=== PATIENT | female | born 1980 | race Caucasian/White ===

== ENCOUNTER 2024-10-30 11:52 | Outpatient (REF) | payer OTHER, SELFPAY ==
--- NOTE | ~2024-10-30 | XR_ITS ---
EXAMINATION: XR SKULL CLINICAL INFORMATION: PT states she had an eardrum repair on left side; COMPARISON: None available. TECHNIQUE: 2 views of the skull were obtained. FINDINGS: No radiopaque foreign body is evident aside from dental hardware. No other abnormalities are seen. XR/XR skull <4V IMPRESSION: Unremarkable examination. There is no absolute contraindication to MRI apparent on the x-ray. Electronically signed by: Tarik Eastman MD 10/30/2024 12:22 PM EDT
--- NOTE | ~2024-10-30 | MR_ITS ---
EXAMINATION: MR BREAST WITHOUT AND WITH CONTRAST, BILATERAL CLINICAL INFORMATION: Palpable left breast lump lower outer left breast to the nipple. Patient describes discomfort to the touch of this area. No diagnostic mammogram or ultrasound for this symptom is in our PACS imaging database. Patient should first have a diagnostic mammogram and ultrasound for any palpable area of concern. COMPARISON: Outside mammograms dated August 12, 2023 and April 12, 2021. TECHNIQUE: MR imaging of the breast was performed using T1, T2 and fat saturated techniques. Dynamic multiphase imaging was also performed after the administration of intravenous gadolinium contrast agent. Computer generated 3D reconstruction and enhancement kinetic analysis was ulitized by the radiologist in the interpretation of this examination. FINDINGS: Breast composition: Heterogeneous fibroglandular breast tissue Background parenchymal enhancement: Moderate Bilateral T2 hyperintense nonenhancing cysts. LEFT BREAST: No suspicious enhancing masses or areas of non mass enhancement. No axillary or internal mammary adenopathy. RIGHT BREAST: No suspicious enhancing masses or areas of non mass enhancement. No axillary or internal mammary adenopathy. Limited views of the chest and abdomen are unremarkable. MR/MR breast BI wo/w con IMPRESSION: Bilateral T2 hyperintense nonenhancing cysts. Benign. Left: No MRI finding to account for the patient's palpable left breast lump. Patient does not have a diagnostic mammogram or ultrasound in our system for this clinical area of concern. Patient should first get a diagnostic mammogram and ultrasound before MRI imaging for any palpable or painful lump. Right: Benign. ASSESSMENT: LEFT BREAST: BI-RADS 0 additional imaging recommended at this time. Patient should has a diagnostic left breast mammogram and ultrasound to evaluate palpable lump and pain. RIGHT BREAST: BI-RADS 2-Benign RECOMMENDATIONS: Left breast diagnostic mammogram and ultrasound at this time to evalaute left breast pain and palpable lump. Electronically signed by: Katt Mcmillan DO 11/02/2024 03:50 PM EDT
== END 2024-10-30 11:53 | disposition home or self-care (01) ==
LOC: HO.MRI 11:52
PROVIDERS: Visit Provider Emergency Medicine
DX: N63.25 Unspecified lump in the left breast, overlapping quadrants (principal); Z01.818 Encounter for other preprocedural examination
CPT/HCPCS: 70250; 77049; A9585

== ENCOUNTER → 2024-10-30 11:55 | Outpatient (BNV) | payer OTHER, SELFPAY | PROVIDERS: Visit Provider Radiology Diagnostic Radiology | DX: N63.23 Unspecified lump in the left breast, lower outer quadrant (principal) | CPT/HCPCS: 77049 ==

== ENCOUNTER 2024-11-23 14:46 | Outpatient (REF) | payer OTHER, SELFPAY ==
--- NOTE | ~2024-11-23 | MM_ITS ---
EXAMINATION(S): 1. MM DIAGNOSTIC DIGITAL BREAST TOMOSYNTHESIS, BILATERAL 2. Targeted ultrasound of the left breast CLINICAL INFORMATION: -According patient, left breast lump in the lower breast. -Patient had the breast MRI on October 30, 2024 to evaluated the left breast lump. No abnormal MR finding was seen to accounts for patient's palpable concern, but a diagnostic mammogram and ultrasound was recommended for better evaluation for the palpable lump. COMPARISON: Breast MRI on October 30, 2024. Mammograms on August 12, 2023 and April 12, 2021 TECHNIQUE: Digital breast tomosynthesis is performed in both the mediolateral oblique and craniocaudal views along with computer-aided detection (CAD). Synthesized 2D images are generated from the tomosynthesis. Spot compression tomosynthesis were obtained. FINDINGS: BREAST COMPOSITION: The breasts are extremely dense, which lowers the sensitivity of mammography (ACR BI-RADS breast composition Category d). RIGHT BREAST: No significant masses, suspicious calcifications or other abnormalities are seen. LEFT BREAST: No significant masses, suspicious calcifications or other abnormalities are seen. Adjacent to the skin BB marker placed in the area of concern at approximately 6 o'clock position posterior depth, there is a lobulated mass measuring up to 3.3 cm in size at about 4 cm from the nipple (CC 15/46, MLO 16/40). Note that the breast compression was partially suboptimal due to presence of multiple cysts and patient's sensitivity to compression. Targeted ultrasound of the left breast performed at the location of the palpable concern as indicated by the patient shows multiple simple cysts, some of them partially septated. The largest cyst measures 2.6 x 1.2 x 2.1 cm and is located 6 o'clock position 2 cm from the nipple. No abnormal vascularity demonstrated with color Doppler evaluation. The cluster of multiple cysts correlates with the apparent single lobulated mass on the mammogram. MM/MM tomosynthesis diagnostic BI IMPRESSION: RIGHT BREAST: Negative, no mammographic evidence of malignancy. Normal interval follow-up is recommended in 12 months. LEFT BREAST: Multiple cysts. Benign, no evidence of malignancy. Clinical follow-up is recommended for the palpable concern. Otherwise, normal interval follow-up is recommended in 12 months. ASSESSMENT: BI-RADS 2 - Benign Findings RECOMMENDATION: 1. Patient should be managed based on the clinical impression. 2. Otherwise, routine annual screening mammography. Results were provided to the patient at time of visit by the technologist. This patient's information was entered into a reminder system with a target due date for their next mammogram. Electronically signed by: Boston Leger MD 11/23/2024 06:16 PM EDT
--- OUTSIDE RECORDS SUMMARY | 2024-11-23 20:13 | XMS_ITS | Encounter Summary ---
Author Organization [facility] Address [address] [facility] [address] [place] [address] Phone Care Team Providers Care Climate Change Analyst Name Role Phone Rae Robertson MD Unavailable [phone] WattersYuri araya-Kimberlyn NURSE STAFF INDUSTRIAL Primary Care Provider + Encounter Details Date Type Department Care Team (Late st Contact Info) Description 02/26/2023 Transcribe Orders Virtual Department [address] [place] [address] Araceli Larkin, DO [address] [place] [address] [email or web address] Breast screening (Primary Dx) Social History Tobacco Use Types Packs/Day Years Used Date Smoking Tobacco: Every Day Cigarettes 0.1 15 Started: 02/11/2001; Last attempted to quit: 02/12/2016 Smokeless Tobacco: Never Alcohol Use Standard Drinks/Week Comments Yes 1 (1 standard drink = 0.6 oz pur e alcohol) Education Answer Date Recorded Are you interested in more education? Not on reny e 07/06/2022 Are you concerned about learning? Not on file 07/06/2022 No 07/06/2022 No 07/06/2022 Digital Access Answer Date Recorded No 08/04/2022 No 08/04/2022 Reliable internet access at home? Not on file 08/04/2022 Device with a working camera? Not on file Comments No Sex and Gender Information Value Date Recorded Sex Assigned at Female 02/19/2019 5:35 PM EST Legal Sex Female 11:38 AM EDT Gender Identity Female 02/19/2019 5:35 PM EST Sexual Orientation Not on file documented as of this encounter Plan of Treatment Not on file documented as of this encounter Results * BI MAMMOGRAM SCREENING WITH TOMOSYNTHESIS WITH CAD (BILATERAL) (08/12/2023 2:13 PM EDT) Anatomical Region Laterality Modality Breast Left, Breast Right, Breast Bilateral Bila teral Mammography 08/14/2023 7:00 PM EDT Impressions 08/14/2023 7:03 PM EDT No mammographic evidence of malignancy in either breast. Annual screening mammography is recommended. BI-RADS 1 NEGATIVE The patient will be notified of the results and recommendations. Narrative 08/14/2023 7:03 PM EDT BI MAMMOGRAM SCREENING WITH TOMOSYNTHESIS WITH CAD (BILATERAL) Additional patient information: Screening. COMPARISON: Comparison is made with relevant prior imaging. Breast composition: The breast tissue is heterogeneously dense which may obscure small masses. FINDINGS: No abnormal masses, suspicious calcifications, or other significant findings are identified mammographically in either breast. Procedure Note Jess Davalos MD - 08/14/2023 BI MAMMOGRAM SCREENING WITH TOMOSYNTHESIS WITH CAD (BILATERAL) Additional patient information: Screening. COMPARISON: Comparison is made with relevant prior imaging. Breast composition: The breast tissue is heterogeneously dense which mayobscure small masses. FINDINGS: No abnormal masses, suspicious calcifications, or other significantfindings are identified mammographically in either breast. IMPRESSION: No mammographic evidence of malignancy in either breast. Annual screening mammography is recommended. BI-RADS 1 NEGATIVE The patient will be notified of the results and recommendations. us Araceli Larkin DO IMG MG EXAMS Final Re sult documented in this encounter Visit Diagnoses Diagnosis Breast screening- Primary Breast screening, unspecified Breast screening Breast screening, unspecified documented in this encounter Care Teams Climate Change Analyst Relationship Specialty Start Date End Date Dorothy Watters CNP [address] [place] [address] PCP - General Gynecology 03/29/21 Rae Robertson MD [address] [place] [address] [email or web address] Medical Oncology 06/18/17 documented as of this encounter Additional Source Comments The information contained in this document represents components of the legal health record. It is not the complete legal health record.[facility]
--- OUTSIDE RECORDS SUMMARY | 2024-11-23 20:13 | XMS_ITS | Encounter Summary ---
Author Organization [facility] Address [address] [facility] [address] [place] [address] Phone Care Team Providers Care Photographic Equipment Inspector Name Role Phone Rae Robertson MD Unavailable [phone] Dorothy Watters ASSEMBLER INSULATOR Primary Care Provider + Encounter Details Date Type Department Care Team ([facility] st Contact Info) Description 10/22/2024 Ancillary Orders [facility] [address] [place] [address] Nicolette Soriano, ASSEMBLER INSULATOR [address] [facility] [address] [place] [address] [email or web address] Mass of left breast, unspecified quadrant (Primary Dx) Social History Tobacco Use Types [...] as of this encounter Plan of Treatment Scheduled Orders Name Type Priority Associated Diagnoses Orde r Schedule Mammogram Diagnostic (Bilateral) Imaging Routine Mass Of Left Breast, Unspecified Quadrant 1 Occurrences starting 10/22/2024 until 10/22/2026 US Breast (Left) Imaging Routine Mass Of Left Breast, Unspecified Quadrant 1 Occurrences starting 10/22/2024 until 10/22/2026 documented as of this encounter Visit Diagnoses Diagnosis Mass of left breast, unspecified quadrant- Primary documented in this encounter Care Teams Photographic Equipment Inspector Relationship Specialty Start Date End Date Dorothy Watters CNP [address] [place] [address] PCP - General Gynecology 03/29/21 Rae Robertson MD [address] [place] [address] Medical Oncology 06/18/17 documented as of this encounter Additional Source Comments The information contained in this document represents components of the legal health record. It is not the complete legal health record.[facility]
--- OUTSIDE RECORDS SUMMARY | 2024-11-23 20:13 | XMS_ITS | Encounter Summary ---
Author Organization [facility] Address [address] [facility] [address] [place] [address] Phone Care Team Providers Care Photostat Operator Helper Name Role Phone Pcp, Not Required Primary Care Provider Rae Saravia MD Unavailable [phone] Dorothy Watters CNP Primary Care Provider + Encounter Details Date Type Department Care Team (Late st Contact Info) Description 01/11/2017 Procedure Pass [facility] [place] [facility] [address] [facility] 2nd [place] [address] Social History Tobacco Use Types Packs/Day Years Used Date Smoking Tobacco: Never Assessed Comments Unknown Sex and Gender Information Value Date Recorded Sex Assigned at Female 02/19/2019 5:35 PM EST Legal Sex Female 11:38 AM EDT Gender Identity Female 02/19/2019 5:35 PM EST Sexual Orientation Not on file documented as of this encounter Plan of Treatment Not on file documented as of this encounter Visit Diagnoses Not on filedocumented in this encounter Additional Health Concerns Infection Onset Date Last Indicated Resolved Time CoV-Risk 02/11/2021 02/11/2021 02/21/2021 1:22 AM EST documented as of this encounter Care Teams Photostat Operator Helper Relationship Specialty Start Date End Date Pcp, Not Required [address] [place] [address] PCP - General 12/27/16 03/28/21 Dorothy Watters CNP [address] [place] [address] [email or web address] PCP - General Gynecology 03/29/21 Rae Robertson MD [address] [place] [address] [email or web address] Medical Oncology 06/18/17 documented as of this encounter Additional Source Comments The information contained in this document represents components of the legal health record. It is not the complete legal health record.[facility]
--- OUTSIDE RECORDS SUMMARY | 2024-11-23 20:13 | XMS_ITS | Clinical Summary ---
Author Organization [facility] Address [address] [place] [employer] [facility] [address] [place] [address] Phone Care Team Providers Care Instructor Pilot Name Role Phone Rae Robertson MD Unavailable [phone] Dorothy Watters OVEN LOADER Primary Care Provider + Allergies Active Allergy Reactions Criticality Noted Date Comments Cat Hair Standardized Allergenic Extract 02/11/2017 Gadoterate Meglumine Itching,Other (See Comments) Low 12/25/2016 Patient also reported brief episode of chest heaviness immediately following the injection. 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 Encounters Date Type Department Care Team Description 10/22/2024 Ancillary Orders [facility] [address] [place] [address] Nicolette Soriano CNP Mass of left breast, unspecified quadrant (Primary Dx) from Last 3 Months Family History Medical History Relation Comments Hypertension Father Prostate cancer Father Breast cancer Maternal Aunt 1 Bladder Cancer Maternal Aunt 2 Breast cancer Maternal Cousin 1 Breast cancer Maternal Cousin 2 Bladder Cancer Maternal Grandmother Heart disease Paternal Grandfather Relation Status Comments Father Alive Maternal Aunt 1 Maternal Aunt 2 Maternal Cousin 1 Maternal Cousin 2 Maternal Grandmother Mother Alive Paternal Grandfather Social History Tobacco Use Types Packs/Day Years Used Date Smoking Tobacco: Every Day Cigarettes 0.1 15 Started: 02/11/2001; Last attempted to quit: 02/12/2016 Smokeless Tobacco: Never Tobacco Cessation:Ready to Q uit: Yes; Counseling Given: Yes Alcohol Use Standard Drinks/Week Comments Yes 1 [...] PM EST Sexual Orientation Not on file Last Filed Vital Signs Vital Sign Reading Time Taken Comments Blood Pressure 110/60 02/17/2021 10:48 AM EST Pulse 100 02/17/2021 10:48 AM EST Temperature 36.7 C (98 F) 02/17/2021 10:48 AM EST Respiratory Rate 16 02/11/2021 5:45 PM EST Oxygen Saturation 100% 02/17/2021 10:48 AM EST Inhaled Oxygen Concentration - - Weight 54.4 kg (120 lb) 02/11/2021 10:23 AM EST Height 177.8 cm (5' 10 ) 02/11/2021 10:23 AM EST Body Mass Index 17.22 02/11/2021 10:23 AM EST Plan of Treatment Health Maintenance Due Date Last Done Comments LIPID PANEL 1978 DEPRESSION SCREENING 1990 SMOKING Hx and SMOKELESS TOBACCO SCREENING 1991 HEPATITIS C SCREENING 1996 HIV ONE-TIME SCREENING (18-6 5 YEARS) 1996 PAP SMEAR 1999 PNEUMOCOCCAL VACCINES (0-49 years) (2 of 2 - PCV) 05/19/2002 05/19/2001 COLOGUARD 2023 COLONOSCOPY 2023 COLORECTAL CANCER SCREENING 2023 FIT TEST 2023 FOBT 2023 SIGMOIDOSCOPY 2023 VIRTUAL COLONOSCOPY 2023 INFLUENZA VACCINE (#1) 2024 01/04/2020 COVID-19 VACCINE (2024-04 6 season) 2024 06/28/2020 MAMMOGRAM 08/11/2025 08/12/2023, 04/12/2021 Adult Td,Tdap Booster 10/16/2028 10/16/2018 , 09/10/2011, 01/14/2003 HEPATITIS A VACCINES Aged Out No long er eligible based on patient's age to complete this topic HIB VACCINES Aged Out No longer eligi ble based on patient's age to complete this topic MENINGOCOCCAL VACCINES (ACWY) Aged Out No longer eligible based on patient's age to complete this topic MENINGOCOCCAL VACCINES (B) Aged Out N o longer eligible based on patient's age to complete this topic Medical Devices Implanted Type Area Shuttle Fitting Supervisor Device Identifier Shelf Expiration Date Model / Serial / Lot Mirena Iud Procedures Procedure Name Priority Date/Time Associated Diagnosis Comments BI MAMMOGRAM SCREENING WITH TOMOSYNTHESIS WITH CAD (BILATERAL) Routine 08/12/2023 2:13 PM EDT Breast screening from Last 3 Months or Most Recently Relevant to Health Maintenance Results * BI MAMMOGRAM SCREENING WITH TOMOSYNTHESIS [...] be notified of the results and recommendations. Araceli Larkin DO IMG MG EXAMS Final Re sult from Last 3 Months or Most Recently Relevant to Health Maintenance Insurance DataEmail Group PLUS PPO DataEmail Group PLUS PPO WELLPOINT GIC PLUS PPO WELLPOINT GIC PLUS PPO WELLPOINT GIC PLUS PPO CiRBA GI PLUS PPO CiRBA GIC PLUS PPO DataEmail Group PLUS PPO DataEmail Group PLUS PPO Advance Directives For more information, please contact: [phone] (9AM - 5PM [facility], Saturday-Saturday) Documents on File Type Date Recorded Patient Beater Out Expl anation Healthcare Proxy 02/21/2017 12:03 PM Care Teams Instructor Pilot Relationship Specialty Start Date End Date Dorothy Watters CNP [address] [place] [phone] PCP - General Gynecology 03/29/21 Rae Robertson MD [address] [place] [address] Medical Oncology 06/18/17 Additional Source Comments The information contained in this document represents components of the legal health record. It is not the complete legal health record.[facility]
--- OUTSIDE RECORDS SUMMARY | 2024-11-23 20:13 | XMS_ITS | Encounter Summary ---
Author Organization [facility] Address [address] [employer] [facility] [address] [place] [address] Phone Care Team Providers Care Utility Locator Name Role Phone Pcp, Not Required Primary Care Provider Rae Saravia MD Unavailable [phone] Dorothy Watters CNP Primary Care Provider + Encounter Details Date Type Department Care Team (Late st Contact Info) Description 02/19/2017 Procedure Pass [facility] [address] [place] [phone] Social History Tobacco Use Types Packs/Day Years Used Date Smoking Tobacco: Former Cigarettes 0.3 15 1 04/14/2000 - 02/12/2016 Smokeless Tobacco: Never Alcohol Use Standard Drinks/Week Comments Yes 2 (1 standard drink = 0.6 oz pur e alcohol) Comments Unknown Sex and Gender Information Value [...] documented as of this encounter Care Teams Utility Locator Relationship Specialty Start Date End Date Pcp, Not Required [address] [place] [address] PCP - General 12/27/16 03/28/21 Dorothy Watters CNP [address] [place] [address] [email or web address] PCP - General Gynecology 03/29/21 Rae Robertson MD [address] [place] [address] [email or web address] Medical Oncology 06/18/17 documented as of this encounter Additional Source Comments The information contained in this document represents components of the legal health record. It is not the complete legal health record.[facility]
--- OUTSIDE RECORDS SUMMARY | 2024-11-23 20:13 | XMS_ITS | Encounter Summary ---
Author Organization [facility] Address [address] [employer] [facility] [address] [place] [address] Phone Care Team Providers Care Hiv Nurse Name Role Phone Rae Robertson MD Unavailable [phone] Dorothy Watters CNP Primary Care Provider + Encounter Details Date Type Department Care Team (Late st Contact Info) Description 02/26/2023 Procedure Pass [facility] - [address] [place] [address] Social History Tobacco Use Types Packs/Day Years [...] Diagnoses Not on filedocumented in this encounter Care Teams Hiv Nurse Relationship Specialty Start Date End Date Dorothy Watters CNP [address] [place] [phone] PCP - General Gynecology 03/29/21 Rae Robertson MD [address] [place] [phone] Medical Oncology 06/18/17 documented as of this encounter Additional Source Comments The information contained in this document represents components of the legal health record. It is not the complete legal health record.[facility]
--- OUTSIDE RECORDS SUMMARY | 2024-11-23 20:14 | XMS_ITS | Encounter Summary ---
Author Organization [facility] Address [address] [employer] [facility] [address] [place] [address] Phone Care Team Providers Care Obstetrics Tech Name Role Phone Pcp, Not Required Primary Care Provider Rae Saravia MD Unavailable [phone] Dorothy Watters CNP Primary Care Provider + Encounter Details Date Type Department Care Team (Late st Contact Info) Description 02/11/2021 Procedure Pass [place] Admitting Dept - Virtual Department [address] [place] [address] Social History Tobacco Use Types Packs/Day Years [...] on file documented as of this encounter Functional Status * Calculated C-SSRS Risk Score (Lifetime/Recent) Answer Date of Assessment Author No Risk Indicated 02/11/2021 10:23 AM EST Ashia Mckeon, GEETA * [place] Suicide Severity Rating Scale (Screener/Recent Self-Report) Question Answer Date of Assessment Author 1. Wish to be (Past 1 Month) No 021 10:23 AM Ashia Sanford, GEETA 2. Non-Specific Active Suici michael Thoughts (Past 1 Month) No 02/11/2021 10:23 AM Ashia Sanford , GEETA 6. Suicidal Behavior (Lifetime) No 10:23 AM Ashia Sanford, GEETA documented as of this encounter Plan of Treatment Not on file documented as of this encounter Visit Diagnoses Not on filedocumented in this encounter Additional Health Concerns Infection Onset Date Last Indicated Resolved Time CoV-Risk 02/11/2021 02/11/2021 02/21/2021 1:22 AM EST documented as of this encounter Care Teams Obstetrics Tech Relationship Specialty Start Date End Date Pcp, Not Required [address] [place] [address] PCP - General 12/27/16 03/28/21 Dorothy Watters CNP [address] [place] [address] PCP - General Gynecology 03/29/21 Rae Robertson MD [address] [place] [address] Medical Oncology 06/18/17 documented as of this encounter Additional Source Comments The information contained in this document represents components of the legal health record. It is not the complete legal health record.[facility]
--- OUTSIDE RECORDS SUMMARY | 2024-11-23 20:14 | XMS_ITS | Encounter Summary ---
Author Organization [facility] Address [address] [facility] [address] [place] [address] Phone Care Team Providers Care Ediscovery Project Manager Name Role Phone Pcp, Not Required Primary Care Provider Rae Saravia MD Unavailable [phone] Dorothy Watters CNP Primary Care Provider + Encounter Details Date Type Department Care Team (Late st Contact Info) Description 03/22/2021 Transcribe Orders Virtual Department [address] [place] [address] Dorothy Watters CNP [address] [place] [address] [email or web address] Encounter for initial prescription of implantable subdermal contraceptive (Primary Dx); Hematuria, unspecified type Social History Tobacco Use Types Packs/Day Years [...] documented as of this encounter Results * US Kidneys and Bladder (03/29/2021 9:44 AM EST) Anatomical Region Laterality Modality Abdomen, Kidney Ultrasound 03/29/2021 9:57 AM EST Impressions 03/29/2021 9:59 AM EST No findings to account for hematuria. Narrative 03/29/2021 9:59 AM EST COMPARISON: CT abdomen pelvis 02/11/2021. RENAL AND BLADDER ULTRASOUND FINDINGS: Bladder: Prevoid volume is 301 cc. Postvoid volume is 10 cc or 3%. Ureteral jets are visualized. No bladder wall thickening, masses or calculi. Kidneys: Right kidney measures 11 x 3 cm. No hydronephrosis, masses or calculi. Cortical echogenicity and thickness are normal. No perinephric fluid collections. Left kidney measures 11 x 4 cm. No hydronephrosis, masses or calculi. Cortical echogenicity and thickness are normal. No perinephric fluid collections. Procedure Note Timbo Duran MD - 03/29/2021 COMPARISON: CT abdomen pelvis 02/11/2021. RENAL AND BLADDER ULTRASOUND FINDINGS: Bladder: Prevoid volume is 301 cc. Postvoid volume is 10 cc or 3%.Ureteral jets are visualized. No bladder wall thickening, masses orcalculi. Kidneys: Right kidney measures 11 x 3 cm. No hydronephrosis, masses or calculi.Cortical echogenicity and thickness are normal. No perinephric fluidcollections. Left kidney measures 11 x 4 cm. No hydronephrosis, masses or calculi.Cortical echogenicity and thickness are normal. No perinephric fluidcollections. IMPRESSION: No findings to account for hematuria. us Laisa-Sheili Watters LAND RECLAMATION SPECIALIST IMG US RENAL Final Re sult documented in this encounter Visit Diagnoses Diagnosis Encounter for initial prescription of implantable subdermal contraceptive- Primary Hematuria, unspecified type Encounter for initial prescription of implantable subdermal contraceptive Hematuria, unspecified type documented in this encounter Care Teams Ediscovery Project Manager Relationship Specialty Start Date End Date Pcp, Not Required [address] [place] [address] PCP - General 12/27/16 03/28/21 Dorothy Watters CNP [address] [place] [address] [email or web address] PCP - General Gynecology 03/29/21 Rae Robertson MD [address] [place] [address] [email or web address] Medical Oncology 06/18/17 documented as of this encounter Additional Source Comments The information contained in this document represents components of the legal health record. It is not the complete legal health record.[facility]
--- OUTSIDE RECORDS SUMMARY | 2024-11-23 20:14 | XMS_ITS | Encounter Summary ---
Author Organization [facility] Address [address] [facility] [address] [place] [address] Phone Care Team Providers Care Watch Parts Inspector Name Role Phone Pcp, Not Required Primary Care Provider Rae Saravia MD Unavailable [phone] Dorothy Watters CNP Primary Care Provider + Encounter Details Date Type Department Care Team (Late st Contact Info) Description 03/16/2021 Procedure Pass [facility] - [address] [place] [address] Social History Tobacco Use Types Packs/Day Years Used Date Smoking Tobacco: Every Day Cigarettes 0.1 15 Started: 02/11/2001; Last attempted to quit: 02/12/2016 Smokeless Tobacco: Never Alcohol Use Standard Drinks/Week Comments Yes 1 (1 standard drink = 0.6 oz pur e alcohol) Comments No Sex and Gender Information Value Date Recorded Sex Assigned at Female 02/19/2019 5:35 PM EST Legal Sex Female 11:38 AM EDT Gender Identity Female 02/19/2019 5:35 PM EST Sexual Orientation Not on file documented as of this encounter Plan of Treatment Not on file documented as of this encounter Visit Diagnoses Not on filedocumented in this encounter Care Teams Watch Parts Inspector Relationship Specialty Start Date End Date Pcp, Not Required [address] [place] [address] PCP - General 12/27/16 03/28/21 Dorothy Watters CNP [address] [place] [address] [email or web address] PCP - General Gynecology 03/29/21 Rae Robertson MD [address] [place] [address] [email or web address] Medical Oncology 06/18/17 documented as of this encounter Additional Source Comments The information contained in this document represents components of the legal health record. It is not the complete legal health record.[facility]
--- OUTSIDE RECORDS SUMMARY | 2024-11-23 20:14 | XMS_ITS | Encounter Summary ---
Author Organization [facility] Address [address] [address] Phone Care Team Providers Care Public Improvement Inspector Name Role Phone Pcp, Not Required Primary Care Provider Rae Saravia MD Unavailable [phone] Dorothy Watters CNP Primary Care Provider + Reason for Referral * MRI/CAT Scan - Closed Specialty Diagnoses / Procedures Referred By Contac t Referred To Contact Radiology Diagnoses Soft tissue mass Procedures CT PET Extremity Lobo Valiente MD Phone: tel: fax: mailto:[email or web address] Referral ID Status Reason Start Date Expiration Date Visits Re quested Visits Authorized [id number] Closed 01/11/2017 01/11/2017 1 1 * MRI/CAT Scan - Closed Specialty Diagnoses / Procedures Referred By Contac t Referred To Contact Radiology Diagnoses Soft tissue mass Procedures CT PET Abdomen/Pelvis Lobo Valiente MD Phone: tel: fax: mailto:[email or web address] Referral ID Status Reason Start Date Expiration Date Visits Re quested Visits Authorized [id number] Closed 01/11/2017 02/25/2017 1 1 * MRI/CAT Scan - Closed Specialty Diagnoses / Procedures Referred By Jerry zhou Referred To Contact Radiology Diagnoses Soft tissue mass Procedures CT PET Chest Lobo Valiente MD Phone: tel: fax: mailto:[email or web address] Referral ID Status Reason Start Date Expiration Date Visits Re quested Visits Authorized [id number] Closed 01/11/2017 02/25/2017 1 1 Encounter Details Date Type Department Care Team (Late st Contact Info) Description 01/11/2017 Ancillary Orders [facility] Orthopaedic Spine [address] [facility], 3rd Floor, [address] [place] [address] Lobo Valiente MD [address] [facility] [address] [place] [address] [email or web address] Soft tissue mass Social History Tobacco Use Types Packs/Day Years [...] documented as of this encounter Results * CT PET EXTREMITY CONTRAST (01/11/2017 2:01 PM EDT) Anatomical Region Laterality Modality Hip Left, Hip Right, Hip Eber ateral, Thigh Left, Thigh Right, Knee Left, Knee Right, Knee Bilateral, Leg Left, Leg Right, Leg Bilateral, Ankle Left, Ankle Right, Ankle Bilateral, Foot Left, Foot Right, Foot Bilateral, Shoulder Left, Shoulder Right, Shoulder Bilateral, Arm Left, Arm Right, Arm Bilateral, Elbow Left, Elbow Right, Elbow Bilateral, Forearm Left, Forearm Right, Forearm Bilateral, Wrist Left, Wrist Right, Wrist Bilateral, Hand Left, Hand Right, Hand Bilateral Positron Emission Ho ography (PET) 01/11/2017 3:18 PM EDT Impressions 01/11/2017 7:09 PM EDT FDG avid, enhancing mass within the left upper medial thigh may be reactive to an infectious / inflammatory process, however neoplasm is not entirely excluded. Enchondroma of the left proximal femur. Narrative 01/11/2017 7:09 PM EDT Diagnostic PET/CT scan: COMPARISON: MRI of the left lower extremity from 12/25/2016 TECHNIQUE: This study was performed as part of a combined PET/CT scan. Separate subspecialty reports will be issued for the individual organ systems. Requesting physicians are referred to the reports from all components of the study. FINDINGS: Pelvis: Please refer to the CT pelvis report from the same day for additional details. Left lower extremity: No additional masses are noted. Within the left, upper medial thigh there is a 4.1 x 1.5 x 2.1 cm enhancing, FDG avid mass, just anteromedial to the left sartorius muscle. Stippled calcified lesion within the left proximal femoral diaphysis with low level FDG uptake, compatible with an enchondroma. Right lower extremity: No suspicious masses, lymphadenopathy or osseous abnormalities. Procedure Note Ayden Ortega MD - 01/11/2017 Diagnostic PET/CT scan: COMPARISON: MRI of the left lower extremity from 12/25/2016 TECHNIQUE: This study was performed as part of a combined PET/CT scan. Separate subspecialty reports will be issued for the individual organ systems. Requesting physicians are referred to the reports from all components ofthe study. FINDINGS: Pelvis: Please refer to the CT pelvis report from the same day foradditional details. Left lower extremity: No additional masses are noted. Within the left,upper medial thigh there is a 4.1 x 1.5 x 2.1 cm enhancing, FDG avid mass,just anteromedial to the left sartorius muscle. Stippled calcified lesionwithin the left proximal femoral diaphysis with low level FDG uptake, compatible withan enchondroma. Right lower extremity: No suspicious masses, lymphadenopathy or osseous abnormalities. IMPRESSION: FDG avid, enhancing mass within the left upper medial thigh may bereactive to an infectious / inflammatory process, however neoplasm is not entirelyexcluded. Enchondroma of the left proximal femur. Lobo Valiente MD IMG CT PETCT Final Result * CT PET ABDOMEN/PELVIS WITH CONTRAST (01/11/2017 2:01 PM EDT) Anatomical Region Laterality Modality Abdomen, Pelvis Positron Emissio n Tomography (PET) 01/11/2017 2:59 PM EDT Impressions 01/12/2017 8:08 AM EDT Prominent FDG avid left inguinal lymph note is nonspecific. Partially visualized mixed sclerotic and lucent lesion in the proximal left femur is better characterized on outside MRI dated 12/25/2016. Narrative 01/12/2017 8:[address] SCAN OF THE ABDOMEN AND PELVIS PERFORMED IN CONJUNCTION WITH PET SCAN COMPARISON: Outside the [facility] MRI 12/25/2016 TECHNIQUE: Diagnostic CT of the abdomen and pelvis was performed as part of a combined PET-CT examination. Diagnostic CT was performed with intravenous contrast. CT and PET images were fused on a workstation and interpreted as part of a combined PET-CT readout. FINDINGS: LOWER THORAX: Please refer to report from concurrently performed chest CT. HEPATOBILIARY: No focal hepatic lesions. No biliary ductal dilatation. SPLEEN: No splenomegaly. PANCREAS: No focal masses or ductal dilatation. ADRENALS: No adrenal nodules. KIDNEYS/URETERS: No hydronephrosis, stones, or solid mass lesions. PELVIC ORGANS/BLADDER: IUD noted. There is a dominant 2.2 cm left ovarian follicle. Mildly distended bladder demonstrates no focal abnormality. Multiple small nabothian cysts. PERITONEUM / RETROPERITONEUM: Trace free fluid in the pelvis is likely physiologic. No free air. No focal fluid collection. LYMPH NODES: There is a 2.2 x 1.2 cm lobulated lymph node in the left inguinal region (11:132). VESSELS: Unremarkable. GI TRACT: No distention or wall thickening. Normal appendix. BONES AND SOFT TISSUES: No focal soft tissue abnormality. Partially visualized mixed sclerotic and lucent lesion in the proximal left femur is better characterized on outside MRI dated 12/25/2016. Procedure Note Colt Tam MD - 01/12/[address] SCAN OF THE ABDOMEN AND PELVIS PERFORMED IN CONJUNCTION WITHPET SCAN COMPARISON: Outside the [facility] MRI 12/25/2016 TECHNIQUE: Diagnostic CT of the abdomen and pelvis was performed as partof a combined PET-CT examination. Diagnostic CT was performed withintravenous contrast. CT and PET images were fused on a workstation and interpretedas part of a combined PET-CT readout. FINDINGS: LOWER THORAX: Please refer to report from concurrently performed chestCT. HEPATOBILIARY: No focal hepatic lesions. No biliary ductal dilatation. SPLEEN: No splenomegaly. PANCREAS: No focal masses or ductal dilatation. ADRENALS: No adrenal nodules. KIDNEYS/URETERS: No hydronephrosis, stones, or solid mass lesions. PELVIC ORGANS/BLADDER: IUD noted. There is a dominant 2.2 cm leftovarian follicle. Mildly distended bladder demonstrates no focal abnormality.Multiple small nabothian cysts. PERITONEUM / RETROPERITONEUM: Trace free fluid in the pelvis is likely physiologic. No free air. No focal fluid collection. LYMPH NODES: There is a 2.2 x 1.2 cm lobulated lymph node in the leftinguinal region (11:132). VESSELS: Unremarkable. GI TRACT: No distention or wall thickening. Normal appendix. BONES AND SOFT TISSUES: No focal soft tissue abnormality. Partiallyvisualized mixed sclerotic and lucent lesion in the proximal left femur is better characterized on outside MRI dated 12/25/2016. IMPRESSION: Prominent FDG avid left inguinal lymph note is nonspecific. Partially visualized mixed sclerotic and lucent lesion in the proximalleft femur is better characterized on outside MRI dated 12/25/2016. Lobo Valiente MD IMG CT PETCT Final Result * CT PET CHEST WITH CONTRAST (01/11/2017 2:01 PM EDT) Anatomical Region Laterality Modality Chest Positron Emissio n Tomography (PET) 01/11/2017 2:26 PM EDT Impressions 01/11/2017 6:48 PM EDT Indeterminate 4-5 mm pulmonary nodules. Follow-up is recommended to reassess. Subpleural reticular opacities and nodules to 1 cm in the lung apices bilaterally. These findings are likely related to areas of scarring from prior infection or inflammation, however follow-up is recommended to confirm stable. RECOMMENDATION: Follow up chest CT in 3 months (or as per clinical protocol) to reassess. This report has been forwarded to an automated communication system which will electronically notify appropriate providers of potentially important findings. Narrative 01/11/2017 6:[address] scan of the chest WITH intravenous contrast in conjunction with PET scan. This study was part of a combined PET-CT examination. Interpretation is in collaboration with other subspecialty Radiologists and Nuclear Medicine physicians. Please refer to all reports for a full description of findings pertaining to this PET-CT. HISTORY: As indicated in header. COMPARISON: No prior examinations available for comparison. FINDINGS: Mediastinum: There is an 8 mm short axis lymph node in the right hilum. There are no mediastinal or hilar lymph nodes exceeding size criteria for enlargement. The heart and great vessels are within normal limits in size. There is no evidence for pericardial effusion. Esophagus is unremarkable in appearance. Pleura: There is no evidence for pleural effusion. Abdomen: Please see concurrent abdominal CT scan for report. Bones and soft tissues: No axillary or subpectoral lymphadenopathy. No suspicious lytic or blastic bony lesions. Lungs: In both lungs predominantly in the lung apices, there are subpleural reticular opacities and nodules to approximately 1 cm. There are pulmonary nodules independent of the subpleural areas. For example, image #50 in the right lower lobe adjacent to the major fissure is a 4 mm pulmonary nodule. Along the right major fissure image 63 there is a 4 mm pulmonary nodule. On image #65 in the left lower lobe at the lateral attachment the major fissure there is a 5 mm pulmonary nodule. There is a 4 mm pulmonary nodule in the superior segment left lower lobe image #40. Dependent groundglass opacities likely related to atelectasis. Procedure Note Ambrocio Jimenez MD - 01/11/[address] scan of the chest WITH intravenous contrast in conjunctionwith PET scan. This study was part of a combined PET-CT examination. Interpretation isin collaboration with other subspecialty Radiologists and Nuclear Medicine physicians. Please refer to all reports for a full description offindings pertaining to this PET-CT. HISTORY: As indicated in header. COMPARISON: No prior examinations available for comparison. FINDINGS: Mediastinum: There is an 8 mm short axis lymph node in the right hilum.There are no mediastinal or hilar lymph nodes exceeding size criteria forenlargement. The heart and great vessels are within normal limits in size. There isno evidence for pericardial effusion. Esophagus is unremarkable inappearance. Pleura: There is no evidence for pleural effusion. Abdomen: Please see concurrent abdominal CT scan for report. Bones and soft tissues: No axillary or subpectoral lymphadenopathy. No suspicious lytic or blastic bony lesions. Lungs: In both lungs predominantly in the lung apices, there aresubpleural reticular opacities and nodules to approximately 1 cm. There arepulmonary nodules independent of the subpleural areas. For example, image #50 in theright lower lobe adjacent to the major fissure is a 4 mm pulmonary nodule. Alongthe right major fissure image 63 there is a 4 mm pulmonary nodule. On image#65 in the left lower lobe at the lateral attachment the major fissure there is a5 mm pulmonary nodule. There is a 4 mm pulmonary nodule in the superior segmentleft lower lobe image #40. Dependent groundglass opacities likely related to atelectasis. IMPRESSION: Indeterminate 4-5 mm pulmonary nodules. Follow-up is recommended toreassess. Subpleural reticular opacities and nodules to 1 cm in the lung apices bilaterally. These findings are likely related to areas of scarring fromprior infection or inflammation, however follow-up is recommended to confirmstable. RECOMMENDATION: Follow up chest CT in 3 months (or as per clinicalprotocol) to reassess. This report has been forwarded to an automated communication system whichwill electronically notify appropriate providers of potentially importantfindings. Lobo Valiente MD IMG CT PETCT Final Result documented in this encounter Visit Diagnoses Diagnosis Soft tissue mass Disorders of soft tissue, unspecified Soft tissue mass Disorders of soft tissue, unspecified documented in this encounter Additional Health Concerns Infection Onset Date Last Indicated Resolved Time CoV-Risk 02/11/2021 02/11/2021 02/21/2021 1:22 AM EST documented as of this encounter Care Teams Public Improvement Inspector Relationship Specialty Start Date End Date Pcp, Not Required [address] [place] [phone] PCP - General 12/27/16 03/28/21 Dorothy Watters CNP [address] [place] [address] [email or web address] PCP - General Gynecology 03/29/21 Rae Robertson MD [address] [place] [address] [email or web address] Medical Oncology 06/18/17 documented as of this encounter Additional Source Comments The information contained in this document represents components of the legal health record. It is not the complete legal health record.[facility]
--- OUTSIDE RECORDS SUMMARY | 2024-11-23 20:14 | XMS_ITS | Encounter Summary ---
Author Organization [facility] Address [address] [facility] [address] [place] [address] Phone Care Team Providers Care Art Librarian Name Role Phone Pcp, Not Required Primary Care Provider Rae Saravia MD Unavailable [phone] Dorothy Watters CNP Primary Care Provider + Encounter Details Date Type Department Care Team (Late st Contact Info) Description 02/11/2021 Procedure Pass [facility], Ct Scan - [address] [address] Social History Tobacco Use Types Packs/Day Years [...] 10:23 AM EST Ashia Mckeon, GEETA * [place] Suicide Severity Rating Scale (Screener/Recent Self-Report) Question Answer Date of Assessment Author 1. Wish to be (Past 1 Month) No 021 10:23 AM Ashia Sanford, GEETA 2. Non-Specific Active Suici michael Thoughts (Past 1 Month) No 02/11/2021 10:23 AM Ashia Sanford RN 6. Suicidal Behavior (Lifetime) No 10:23 AM Ashia Sanford, GEETA documented as of this encounter Plan of Treatment Not on file documented as of this encounter Visit Diagnoses Not on filedocumented in this encounter Additional Health Concerns Infection Onset Date Last Indicated Resolved Time CoV-Risk 02/11/2021 02/11/2021 02/21/2021 1:22 AM EST documented as of this encounter Care Teams Art Librarian Relationship Specialty Start Date End Date Pcp, Not Required [address] [place] [id number] PCP - General 12/27/16 03/28/21 Dorothy Watters CNP [address] [place] [phone] PCP - General Gynecology 03/29/21 Rae Robertson MD [address] [place] [address] Medical Oncology 06/18/17 documented as of this encounter Additional Source Comments The information contained in this document represents components of the legal health record. It is not the complete legal health record.[facility]
--- OUTSIDE RECORDS SUMMARY | 2024-11-23 20:14 | XMS_ITS | Encounter Summary ---
Author Organization [facility] Address [address] [facility] [address] [place] [address] Phone Care Team Providers Care Bail Attacher Name Role Phone Pcp, Not Required Primary Care Provider Rae Saravia MD Unavailable [phone] Dorothy Watters CNP Primary Care Provider + Encounter Details Date Type Department Care Team (Late st Contact Info) Description 01/11/2017 Procedure Pass [facility] [place] [address] [facility] 2nd [place] [address] Social History Tobacco Use Types Packs/Day Years [...] documented as of this encounter Care Teams Bail Attacher Relationship Specialty Start Date End Date Pcp, Not Required [address] [place] [address] PCP - General 12/27/16 03/28/21 Dorothy Watters CNP [address] [place] [address] [email or web address] PCP - General Gynecology 03/29/21 Rae Robertson MD [address] [place] [address] [email or web address] Medical Oncology 06/18/17 documented as of this encounter Additional Source Comments The information contained in this document represents components of the legal health record. It is not the complete legal health record.[facility]
--- OUTSIDE RECORDS SUMMARY | 2024-11-23 20:14 | XMS_ITS | Encounter Summary ---
Author Organization [facility] Address [address] [facility] [address] [place] [phone] Phone Care Team Providers Care Senior Naval Parachutist Name Role Phone Pcp, Not Required Primary Care Provider Rae Saravia MD Unavailable [phone] Dorothy Watters CNP Primary Care Provider + Encounter Details Date Type Department Care Team (Late st Contact Info) Description 12/31/2016 Procedure Pass [facility] General Imaging [address] [place] [address] Social History Tobacco Use Types Packs/Day Years [...] documented as of this encounter Care Teams Senior Naval Parachutist Relationship Specialty Start Date End Date Pcp, Not Required [address] [place] [address] PCP - General 12/27/16 03/28/21 Dorothy Watters CNP [address] [place] [address] [email or web address] PCP - General Gynecology 03/29/21 Rae Robertson MD [address] [place] [address] [email or web address] Medical Oncology 06/18/17 documented as of this encounter Additional Source Comments The information contained in this document represents components of the legal health record. It is not the complete legal health record.[facility]
--- OUTSIDE RECORDS SUMMARY | 2024-11-23 20:14 | XMS_ITS | Encounter Summary ---
Author Organization [facility] Address [address] [place] [address] Phone Care Team Providers Care Char Filter Tank Tender Head Name Role Phone Pcp, Not Required Primary Care Provider Rae Saravia MD Unavailable [phone] Dorothy Watters CNP Primary Care Provider + Reason for Referral * - Closed Specialty Diagnoses / Procedures Referred By Jerry zhou Referred To Contact Radiology Diagnoses Soft tissue mass Procedures US Biopsy Soft Tissue CT Biopsy Soft Tissue Lobo Valiente MD Phone: tel: fax: [email or web address]:[email or web address] Referral ID Status Reason Start Date Expiration Date Visits Re quested Visits Authorized [id number] Closed 01/01/2017 01/01/2018 1 1 Encounter Details Date Type Department Care Team (Late st Contact Info) Description 01/01/2017 Ancillary Orders [facility] Orthopaedic Oncology [address], 3[address], [address] [place] [address] Lobo Valiente MD [address] [place] [address] [email or web address] Soft tissue mass Social History Tobacco Use [...] as of this encounter Results * US Biopsy Soft Tissue (01/01/2017 3:25 PM EDT) Anatomical Region Laterality Modality Computed Tomogra phy 01/01/2017 4:11 PM EDT Impressions 01/01/2017 8:15 PM EDT Ultrasound guided core needle biopsy of a left proximal medial thigh soft tissue mass. Samples were sent to surgical pathology for diagnosis. Please see separate pathology report. Narrative 01/01/2017 8:15 PM EDT US GUIDED SOFT TISSUE BIOPSY COMPARISON: Outside lower extremity MRI of 12/25/2016 OPERATORS: Dr. Julio Felix MEDICATION: 1% lidocaine, skin anesthesia CONSENT: The patient was informed of the nature of the proposed procedure. The purposes, alternatives, risks, and benefits were explained and discussed. All questions were answered and written consent was obtained. A time-out was performed prior to initiation of the procedure to reconfirm the patient's name, date of , and site of procedure. TECHNIQUE AND PROCEDURE: The patient was brought to the scanner and was placed in a supine position. Focused ultrasound of the left upper medial thigh was performed, the soft tissue mass previously seen on outside MRI was identified, and a site was chosen for biopsy. The patient's skin was then marked with a magic marker and the skin overlying the puncture site was prepped and draped in usual sterile fashion and infiltrated with lidocaine for local anesthesia. A 16 gauge 6cm Deskwanted biopsy needle was used to obtain two core samples. The cores were placed in saline vials and delivered to surgical pathology for frozen section and further diagnosis. Frozen pathology confirmed diagnostic tissue sampling. Direct pressure was held upon the puncture site until hemostasis was achieved. Sterile dressing was applied. There were no immediate complications. The patient was later discharged in stable condition to home. Post-procedure instructions were explained. Procedure Note Stefano Felix MD - 01/01/2017 US GUIDED SOFT TISSUE BIOPSY COMPARISON: Outside lower extremity MRI of 12/25/2016 OPERATORS: Dr. Julio Felix MEDICATION: 1% lidocaine, skin anesthesia CONSENT: The patient was informed of the nature of the proposed procedure. Thepurposes, alternatives, risks, and benefits were explained and discussed. Allquestions were answered and written consent was obtained. A time-out wasperformed prior to initiation of the procedure to reconfirm the patient's name, dateof , and site of procedure. TECHNIQUE AND PROCEDURE: The patient was brought to the scanner and was placed in a supineposition. Focused ultrasound of the left upper medial thigh was performed, the softtissue mass previously seen on outside MRI was identified, and a site was chosenfor biopsy. The patient's skin was then marked with a magic marker and theskin overlying the puncture site was prepped and draped in usual sterilefashion and infiltrated with lidocaine for local anesthesia. A 16 gauge 6cm Deskwanted biopsy needle was used to obtain two core samples. The coreswere placed in saline vials and delivered to surgical pathology for frozensection and further diagnosis. Frozen pathology confirmed diagnostic tissuesampling. Direct pressure was held upon the puncture site until hemostasis wasachieved. Sterile dressing was applied. There were no immediate complications. The patient was later dischargedin stable condition to home. Post-procedure instructions were explained. IMPRESSION: Ultrasound guided core needle biopsy of a left proximal medial thigh softtissue mass. Samples were sent to surgical pathology for diagnosis. Pleasesee separate pathology report. Lobo Valiente MD IMG IR MSK Final Result documented in this encounter Visit Diagnoses Diagnosis Soft tissue mass Disorders of soft tissue, unspecified Soft tissue mass Disorders of soft tissue, unspecified documented in this encounter Additional Health Concerns Infection Onset Date Last Indicated Resolved Time CoV-Risk 02/11/2021 02/11/2021 02/21/2021 1:22 AM EST documented as of this encounter Care Teams Char Filter Tank Tender Head Relationship Specialty Start Date End Date Pcp, Not Required [address] [place] [id number] PCP - General 12/27/16 03/28/21 Dorothy Watters CNP [address] [place], [place] [id number] [email or web address] PCP - General Gynecology 03/29/21 Rae Robertson MD [address] [place] [phone] [email or web address] Medical Oncology 06/18/17 documented as of this encounter Additional Source Comments The information contained in this document represents components of the legal health record. It is not the complete legal health record.[facility]
--- OUTSIDE RECORDS SUMMARY | 2024-11-23 20:14 | XMS_ITS | Encounter Summary ---
Author Organization [facility] Address [address] [place] [address] Phone Care Team Providers Care Professor Of Graphic Design Name Role Phone Pcp, Not Required Primary Care Provider Rae Saravia MD Unavailable [phone] Dorothy Watters CNP Primary Care Provider + Encounter Details Date Type Department Care Team (Late st Contact Info) Description 01/11/2017 Procedure Pass [facility], [address] [facility] [place] [address] Social History Tobacco Use Types Packs/Day Years [...] documented as of this encounter Care Teams Professor Of Graphic Design Relationship Specialty Start Date End Date Pcp, Not Required [address] [place] [address] PCP - General 12/27/16 03/28/21 Dorothy Watters CNP [address] [place] [phone] [email or web address] PCP - General Gynecology 03/29/21 Rae Robertson MD [address] [place] [phone] [email or web address] Medical Oncology 06/18/17 documented as of this encounter Additional Source Comments The information contained in this document represents components of the legal health record. It is not the complete legal health record.[facility]
--- OUTSIDE RECORDS SUMMARY | 2024-11-23 20:14 | XMS_ITS | Encounter Summary ---
Author Organization [facility] Address [address] [address] Phone Care Team Providers Care Business Risk Consultant Name Role Phone Pcp, Not Required Primary Care Provider Rae Saravia MD Unavailable [phone] Dorothy Watters CNP Primary Care Provider + Encounter Details Date Type Department Care Team (Late st Contact Info) Description 03/16/2021 Transcribe Orders Virtual Department [address] [place] [address] Dorothy Watters CNP [address] [place] [id number] [email or web address] Breast screening (Primary Dx) Social History Tobacco [...] MAMMOGRAM SCREENING WITH TOMOSYNTHESIS WITH CAD (BILATERAL) (04/12/2021 10:08 AM EST) Anatomical Region Laterality Modality Breast Left, Breast Right, Breast Bilateral Bila teral Mammography 04/12/2021 11:0 5 AM EST Impressions 04/12/2021 11:11 AM EST BILATERAL BREASTS: Negative, no evidence of malignancy. Normal interval follow- up is recommended in 12 months. Bi-RADS: BI-RADS CATEGORY: 1 - Negative. DENSITY: The breast tissue is heterogeneously dense, which could obscure a lesion on mammography. Narrative 04/12/2021 11:11 AM EST STUDY: Bilateral screening mammography with tomosynthesis and CAD TECHNIQUE: Bilateral full-field digital screening mammography is obtained and read in conjunction with computer-aided detection. Tomosynthesis as well as 2-D C view imaging were obtained. COMPARISON: None. This is a baseline study. BREAST COMPOSITION: The breast tissue is heterogeneously dense, which may obscure small masses. BILATERAL BREASTS: No significant masses, suspicious calcifications or other abnormalities are seen. Procedure Note Boston Leger MD - 04/12/2021 STUDY: Bilateral screening mammography with tomosynthesis and CAD TECHNIQUE: Bilateral full-field digital screening mammography is obtainedand read in conjunction with computer-aided detection. Tomosynthesis aswell as 2-D C view imaging were obtained. COMPARISON: None. This is a baseline study. BREAST COMPOSITION: The breast tissue is heterogeneously dense, which mayobscure small masses. BILATERAL BREASTS: No significant masses, suspicious calcifications orother abnormalities are seen. IMPRESSION: BILATERAL BREASTS: Negative, no evidence of malignancy. Normal intervalfollow-up is recommended in 12 months. Bi-RADS: BI-RADS CATEGORY: 1 - Negative. DENSITY: The breast tissue is heterogeneously dense, which could obscurea lesion on mammography. us Laisa-Sheili Watters FILTER TENDER JELLY IMG MG EXAMS Final Re sult documented in this encounter Visit Diagnoses Diagnosis Breast screening- Primary Breast screening, unspecified Breast screening Breast screening, unspecified documented in this encounter Care Teams Business Risk Consultant Relationship Specialty Start Date End Date Pcp, Not Required [address] [place] [id number] PCP - General 12/27/16 03/28/21 Dorothy Watters CNP [address] [place] [id number] PCP - General Gynecology 03/29/21 Rae Robertson MD [address] [place] [address] Medical Oncology 06/18/17 documented as of this encounter Additional Source Comments The information contained in this document represents components of the legal health record. It is not the complete legal health record.[facility]
== END 2024-11-23 14:47 | disposition home or self-care (01) ==
LOC: HO.MAMMO 14:46
PROVIDERS: PCP Emergency Medicine; Visit Provider Emergency Medicine
DX: N63.42 Unspecified lump in left breast, subareolar (principal)
CPT/HCPCS: 76642; 77062; 77066

== ENCOUNTER → 2024-11-23 15:30 | Outpatient (BNV) | payer OTHER, SELFPAY | PROVIDERS: PCP Emergency Medicine; Visit Provider Radiology Body Imaging | DX: N60.12 Diffuse cystic mastopathy of left breast (principal) | CPT/HCPCS: 76642; 77062; 77066 ==